=== PATIENT | female | born 1975 | race Caucasian/White ===

== ENCOUNTER 2017-09-27 23:53 | Emergency (ER) | payer OTHER ==
[~2017-09-27] VITALS: Ht 160 cm; Wt 87.5 kg
[~2017-09-27 23:53] MED LIST: HYDROCODON-ACE1 EAC7 PO; ZOFRAN4 MG PO
[2017-09-28] MEDS ORDERED: TRAMADOL HCL50 MG PO (00:50)
[2017-09-28] MEDS ORDERED: NAPROSYN500 MG PO (00:50)
[2017-09-28 01:00] VITALS: BP 156/90
== END 2017-09-28 01:00 | disposition home or self-care (01) ==
LOC: EME 23:53 → EXP 23:53
DX: S93.402A Sprain of unspecified ligament of left ankle, initial encounter (principal); W18.40XA Slipping, tripping and stumbling without falling, unspecified, initial encounter; Y92.009 Unspecified place in unspecified non-institutional (private) residence as the place of occurrence of the external cause
CPT/HCPCS: 73610; 99281; 99284; J1885